=== PATIENT | female | born 1970 | race African-American/Black ===

== ENCOUNTER 2022-10-18 07:13 | Inpatient (IN) | payer OTHER ==
[2022-10-18] VITALS (7 sets, daily range): BP systolic 108–138; BP diastolic 75–92
[~2022-10-18] VITALS: Ht 160 cm; Wt 54.4 kg
[2022-10-18] MEDS ORDERED: IPRATROPIUM BROMIDE (0.02%) 0.5MG/2.5ML NEB HHN STA (07:18)
[2022-10-18] MEDS ORDERED: METHYLPREDNISOLONE SOD SUCC 125 MG/2 ML VIAL IV STA (07:18)
[2022-10-18] MEDS ORDERED: LORAZEPAM 2MG/ML CPJ IV ONE (07:30)
[2022-10-18] MEDS ORDERED: SODIUM CHLORIDE 0.9% 1,000 ML IV ONE (07:30)
[2022-10-18] MEDS ORDERED: MAGNESIUM 2 G PREMIX 50 ML IV ONE (07:30)
[2022-10-18 07:56] LABS: BG BASE EXCESS -2.4 mmol/L (-2.0-2.0); BG DEOXYHEMOGLOBIN 0.5 % (0.0-5.0); BG FRACTION INSPIRED OXYGEN 100; BG HCO3 ACT 25.9 mmol/L (22.0-26.0); BG METHEMOGLOBIN 0.4 % (0.0-1.5); BG OXYGEN SATURATION 99.5 % (92.0-98.5); BG OXYHEMOGLOBIN 98.1 % (94.0-97.0); BG PCO2 58.4 mmHg (35.0-45.0); BG PH 7.264 (7.350-7.450); BG PO2 203.8 mmHg (75.0-100.0); BG SAMPLE SITE LEFT RADIAL; BG TOTAL HEMOGLOBIN 16.2 g/dL (12.0-18.0); BG TOTAL RESPIRATORY RATE 30 b/min; BG VENT MODE MASK - BIPAP
[2022-10-18 08:06] LABS: BASOPHILS % 0.2 % (0.0-2.0); EOSINOPHILS % 1.2 % (0.0-5.0); HEMATOCRIT. 46.9 % (36.0-48.0); HEMOGLOBIN. 15.3 g/dL (12.0-16.0); LYMPHOCYTES % 12.9 % (20.0-50.0); MEAN CORPUSCULAR HEMOGLOBIN 31.1 pg (28.0-32.0); MEAN CORPUSCULAR VOLUME 95.3 fL (81.0-99.0); MEAN PLATELET VOLUME 7.9 fl (7.4-10.4); NEUTROPHILS % 77.7 % (40.0-76.0); PLATELET 280 x1000/uL (130-400); RED BLOOD CELL COUNT 4.92 mill/uL (4.2-5.4)
[2022-10-18 08:12] LABS: CHLORIDE 106 mEq/L (98-107)
[2022-10-18] MEDS ORDERED: LIDOCAINE HCL/PF 1% 10 MG/ML 5ML VIAL INFIL ONE (08:15)
[2022-10-18] MEDS: ALBUTEROL (0.083%) 2.5MG/3ML NEB HHN SCH ×2 (08:18→10:00)
[2022-10-18] MEDS ORDERED: MORPHINE SULFATE 4 MG/ML CPJ (NOT FOR IM USE) IV ONE (09:30)
[2022-10-18] MEDS ORDERED: NALOXONE HCL 0.4MG/ML VIAL IV PRN (11:15)
[2022-10-18] MEDS: HYDROCODONE/ACETAMINOPHEN 5/325MG TABLET PO PRN ×2 (11:45→17:21)
[2022-10-18] MEDS: KETOROLAC 15MG/ML VIAL IV PRN ×2 (12:54→21:22)
[2022-10-18] MEDS: METHYLPREDNISOLONE SOD SUCC 40 MG/ML VIAL IV SCH ×2 (14:22→21:24)
[2022-10-18] MEDS ORDERED: INFLUENZA VACCINE 05/PF 0.5 ML SYRINGE IM ONE (14:45)
[2022-10-18] MEDS ORDERED: IPRATROPIUM/ALBUTEROL 0.5-3(2.5)MG/3ML NEB HHN PRN (14:45)
[2022-10-18] MEDS ORDERED: HYDR-4009 PO (19:34)
[2022-10-18] MEDS ORDERED: RIVA20TA PO (19:44)
[2022-10-18] MEDS ORDERED: P20 PO (19:44)
[2022-10-18] MEDS ORDERED: DEXTL MT (19:44)
[2022-10-18] MEDS ORDERED: MORP60TA45 PO (19:44)
[2022-10-18] MEDS ORDERED: ALBU2.5V13 NEB (19:44)
[2022-10-18] MEDS ORDERED: FLUT1DIS3 INH (19:44)
[2022-10-18] MEDS ORDERED: BUDE0.5A3 NEB (19:44)
[2022-10-18] MEDS ORDERED: UMEC1DIS INH (19:44)
[2022-10-18] MEDS: IPRATROPIUM/ALBUTEROL 0.5-3(2.5)MG/3ML NEB HHN SCH (21:16)
[2022-10-19] VITALS (12 sets, daily range): BP systolic 111–145; BP diastolic 67–87
[2022-10-19] MEDS: IPRATROPIUM/ALBUTEROL 0.5-3(2.5)MG/3ML NEB HHN SCH ×4 (00:51→21:04)
[2022-10-19] MEDS: HYDROCODONE/ACETAMINOPHEN 5/325MG TABLET PO PRN ×4 (01:00→20:50)
[2022-10-19] MEDS: KETOROLAC 15MG/ML VIAL IV PRN ×3 (03:17→16:37)
[2022-10-19] MEDS: METHYLPREDNISOLONE SOD SUCC 40 MG/ML VIAL IV SCH ×3 (04:36→20:49)
[2022-10-19 10:37] LABS: BG BASE EXCESS 1.1 mmol/L (-2.0-2.0); BG CARBOXYHEMOGLOBIN 0.3 % (0.5-1.5); BG DEOXYHEMOGLOBIN 5.1 % (0.0-5.0); BG FRACTION INSPIRED OXYGEN 32; BG HCO3 ACT 25.3 mmol/L (22.0-26.0); BG METHEMOGLOBIN 0.3 % (0.0-1.5); BG OXYGEN SATURATION 94.9 % (92.0-98.5); BG OXYHEMOGLOBIN 94.3 % (94.0-97.0); BG PCO2 38.6 mmHg (35.0-45.0); BG PH 7.434 (7.350-7.450); BG PO2 71.8 mmHg (75.0-100.0); BG SAMPLE SITE RIGHT RADIAL; BG TOTAL HEMOGLOBIN 13.8 g/dL (12.0-18.0); BG VENT MODE NASAL CANNULA
[2022-10-19] MEDS: GUAIFENESIN-DM 200MG-20MG/10ML UDC PO PRN ×2 (14:07→18:50)
[2022-10-20] VITALS (12 sets, daily range): BP systolic 101–128; BP diastolic 58–89
[2022-10-20] MEDS: GUAIFENESIN-DM 200MG-20MG/10ML UDC PO PRN ×2 (01:05→09:18)
[2022-10-20] MEDS: KETOROLAC 15MG/ML VIAL IV PRN ×2 (01:05→09:18)
[2022-10-20] MEDS: IPRATROPIUM/ALBUTEROL 0.5-3(2.5)MG/3ML NEB HHN SCH ×3 (02:00→14:51)
[2022-10-20] MEDS: ONDANSETRON HCL 4MG/2ML INJ IV PRN (04:16)
[2022-10-20] MEDS: METHYLPREDNISOLONE SOD SUCC 40 MG/ML VIAL IV SCH ×3 (04:16→21:13)
[2022-10-20] MEDS: HYDROCODONE/ACETAMINOPHEN 5/325MG TABLET PO PRN ×4 (04:17→18:12)
[2022-10-20] MEDS: ENOXAPARIN 40MG/0.4ML SYR SUBCUT SCH (21:00)
[2022-10-21 00:47] VITALS: BP 119/71
[2022-10-21] MEDS: IPRATROPIUM/ALBUTEROL 0.5-3(2.5)MG/3ML NEB HHN SCH ×4 (01:07→20:25)
[2022-10-21] MEDS: KETOROLAC 15MG/ML VIAL IV PRN ×2 (02:31→11:56)
[2022-10-21] MEDS: GUAIFENESIN-DM 200MG-20MG/10ML UDC PO PRN ×2 (02:31→11:55)
[2022-10-21] MEDS: METHYLPREDNISOLONE SOD SUCC 40 MG/ML VIAL IV SCH ×3 (05:04→21:41)
[2022-10-21 06:00] VITALS: BP 130/78
[2022-10-21 08:00] VITALS: BP 130/71
[2022-10-21 12:15] VITALS: BP 123/80
[2022-10-21] MEDS ORDERED: DOCUSATE SODIUM 250MG CAPSULE PO PRN (13:45)
[2022-10-21 16:15] VITALS: BP 123/80
[2022-10-21 20:00] VITALS: BP 136/97
[2022-10-21] MEDS ORDERED: MORPHINE SULFATE 2 MG/ML CPJ (NOT FOR IM USE) IV NR (21:00)
[2022-10-21] MEDS: ENOXAPARIN 40MG/0.4ML SYR SUBCUT SCH (21:41)
[2022-10-22] VITALS (7 sets, daily range): BP systolic 107–137; BP diastolic 63–80
[2022-10-22] MEDS: IPRATROPIUM/ALBUTEROL 0.5-3(2.5)MG/3ML NEB HHN SCH ×4 (02:00→21:37)
[2022-10-22] MEDS: METHYLPREDNISOLONE SOD SUCC 40 MG/ML VIAL IV SCH ×3 (05:26→21:21)
[2022-10-22] MEDS ORDERED: MORPHINE SULFATE 30MG TABLET SR PO SCH ×2 (09:00→21:00)
[2022-10-22 10:21] LABS: HEMATOCRIT. 45.2 % (36.0-48.0); HEMOGLOBIN. 15.2 g/dL (12.0-16.0); MEAN CORPUSCULAR HEMOGLOBIN 31.7 pg (28.0-32.0); MEAN CORPUSCULAR VOLUME 94.2 fL (81.0-99.0); MEAN PLATELET VOLUME 8.6 fl (7.4-10.4); PLATELET 326 x1000/uL (130-400)
[2022-10-22 10:36] LABS: CHLORIDE 103 mEq/L (98-107)
[2022-10-22] MEDS ORDERED: MORPHINE SULFATE 15MG TABLET SR PO SCH (11:15)
[2022-10-22] MEDS ORDERED: POTASSIUM CHLORIDE 20MEQ TABLET SR PO NR (14:15)
[2022-10-22] MEDS: ENOXAPARIN 40MG/0.4ML SYR SUBCUT SCH (21:22)
[2022-10-22] MEDS ORDERED: MORPHINE SULFATE 30MG TABLET SR PO NR (22:23)
[2022-10-22] MEDS ORDERED: PHENYLEPH/PRAMOXIN/GLYCR/PET RECTAL CREAM 26GM PR PRN (22:30)
[2022-10-23] VITALS: BP 112/66
[2022-10-23] MEDS: GUAIFENESIN-DM 200MG-20MG/10ML UDC PO PRN (01:36)
[2022-10-23] MEDS: IPRATROPIUM/ALBUTEROL 0.5-3(2.5)MG/3ML NEB HHN SCH ×4 (02:56→21:11)
[2022-10-23 03:53] VITALS: BP 101/65
[2022-10-23] MEDS: METHYLPREDNISOLONE SOD SUCC 40 MG/ML VIAL IV SCH ×3 (04:37→20:41)
[2022-10-23 06:41] LABS: PLATELET ESTIMATE NORMAL
[2022-10-23 08:00] VITALS: BP 132/89
[2022-10-23] MEDS: MORPHINE SULFATE 30MG TABLET SR PO SCH ×2 (08:23→20:42)
[2022-10-23 12:00] VITALS: BP 126/87
[2022-10-23 16:00] VITALS: BP 122/80
[2022-10-23] MEDS ORDERED: MORPHINE SULFATE 2 MG/ML CPJ (NOT FOR IM USE) IV NR (16:57)
[2022-10-23 19:53] VITALS: BP 119/79
[2022-10-23] MEDS: ENOXAPARIN 40MG/0.4ML SYR SUBCUT SCH (20:42)
[2022-10-24] VITALS: BP 110/75
[2022-10-24 04:00] VITALS: BP 115/75
[2022-10-24] MEDS: METHYLPREDNISOLONE SOD SUCC 40 MG/ML VIAL IV SCH ×3 (04:09→20:26)
[2022-10-24 08:00] VITALS: BP 128/80
[2022-10-24] MEDS: MORPHINE SULFATE 30MG TABLET SR PO SCH ×2 (08:20→21:05)
[2022-10-24] MEDS ORDERED: NALOXONE HCL 0.4MG/ML VIAL IV PRN (09:30)
[2022-10-24] MEDS ORDERED: IPRATROPIUM/ALBUTEROL 0.5-3(2.5)MG/3ML NEB HHN PRN (11:15)
[2022-10-24 12:00] VITALS: BP 144/77
[2022-10-24] MEDS: IPRATROPIUM/ALBUTEROL 0.5-3(2.5)MG/3ML NEB HHN SCH ×2 (13:51→21:22)
[2022-10-24 16:00] VITALS: BP 154/90
[2022-10-24 20:00] VITALS: BP 127/79
[2022-10-24] MEDS: ENOXAPARIN 40MG/0.4ML SYR SUBCUT SCH (21:04)
[2022-10-25] VITALS (11 sets, daily range): BP systolic 95–147; BP diastolic 62–97
[2022-10-25] MEDS: IPRATROPIUM/ALBUTEROL 0.5-3(2.5)MG/3ML NEB HHN SCH ×6 (00:52→19:55)
[2022-10-25] MEDS: METHYLPREDNISOLONE SOD SUCC 40 MG/ML VIAL IV SCH ×3 (04:55→21:07)
[2022-10-25] MEDS: MORPHINE SULFATE 30MG TABLET SR PO SCH ×2 (08:41→21:08)
[2022-10-25] MEDS ORDERED: LORAZEPAM 1MG TABLET PO NR (20:30)
[2022-10-25] MEDS: ENOXAPARIN 40MG/0.4ML SYR SUBCUT SCH (21:08)
[2022-10-26] VITALS (27 sets, daily range): BP systolic 97–152; BP diastolic 48–92
[2022-10-26] MEDS: IPRATROPIUM/ALBUTEROL 0.5-3(2.5)MG/3ML NEB HHN SCH ×6 (01:00→20:50)
[2022-10-26] MEDS: METHYLPREDNISOLONE SOD SUCC 40 MG/ML VIAL IV SCH ×3 (05:20→21:25)
[2022-10-26 06:20] LABS: CHLORIDE 98 mEq/L (98-107)
[2022-10-26 06:33] LABS: HEMATOCRIT. 40.9 % (36.0-48.0); HEMOGLOBIN. 13.7 g/dL (12.0-16.0); MEAN CORPUSCULAR HEMOGLOBIN 31.5 pg (28.0-32.0); MEAN CORPUSCULAR VOLUME 94.1 fL (81.0-99.0); MEAN PLATELET VOLUME 7.8 fl (7.4-10.4); PLATELET 359 x1000/uL (130-400); RED BLOOD CELL COUNT 4.34 mill/uL (4.2-5.4); RED CELL DISTRIBUTION WIDTH 14.2 % (11.6-14.6)
[2022-10-26 06:39] LABS: PROTHROMBIN TIME 10.3 sec (9.6-11.0)
[2022-10-26] MEDS: MORPHINE SULFATE 30MG TABLET SR PO SCH ×2 (08:23→21:51)
[2022-10-26] MEDS ORDERED: TALC 3 GM VIAL IX NR (11:30)
[2022-10-26] MEDS ORDERED: LIDOCAINE HCL/EPINEPHRINE 1%-EPI 1:100,000 30 ML VIAL INFIL ONE (11:43)
[2022-10-26] MEDS ORDERED: SKIN ADHESIVE 0.7 GM EA TOP ONE (11:44)
[2022-10-26] MEDS ORDERED: POLYMYXIN B SULFATE 500000 UNITS/VIAL ONE (11:44)
[2022-10-26] MEDS ORDERED: BUPIVACAINE HCL/PF 0.5% (5MG/ML) 10ML ONE ×2 (11:48→18:01)
[2022-10-26] MEDS ORDERED: ACETAMINOPHEN 500MG TABLET ONE (13:35)
[2022-10-26] MEDS ORDERED: ALBUMIN HUMAN 12.5G/250ML (5%) IV NR (15:00)
[2022-10-26] MEDS ORDERED: PHENYLEPHRINE 50 MG in DEXTROSE 5% WATER 250 ML IV PRN (15:00)
[2022-10-26] MEDS ORDERED: ALBUTEROL 6.7GM HFA INHALER ONE (15:48)
[2022-10-26] MEDS ORDERED: PROPOFOL 200MG/20ML VIAL IV ONE ×2 (15:53→16:52)
[2022-10-26] MEDS ORDERED: MIDAZOLAM HCL 2 MG/2 ML VIAL ONE (15:54)
[2022-10-26] MEDS ORDERED: METOCLOPRAMIDE HCL 10MG/2ML VIAL ONE (15:54)
[2022-10-26] MEDS ORDERED: ONDANSETRON HCL 4MG/2ML INJ ONE (15:54)
[2022-10-26] MEDS ORDERED: SUCCINYLCHOLINE CHLORIDE 200MG/10ML IV ONE (15:54)
[2022-10-26] MEDS ORDERED: ROCURONIUM BROMIDE 10MG/ML VIAL 5ML IV ONE (15:54)
[2022-10-26] MEDS ORDERED: PHENYLEPHRINE HCL 10 MG/ML 1ML (IV VIAL) IV ONE (16:00)
[2022-10-26] MEDS ORDERED: FENTANYL CITRATE/PF 50MCG/ML 2ML VIAL ONE (16:51)
[2022-10-26] MEDS ORDERED: GLYCOPYRROLATE 0.2 MG/ML 2ML VIAL ONE (17:25)
[2022-10-26] MEDS ORDERED: NEOSTIGMINE METHYLSULFATE 1MG/ML 10 ML VIAL ONE (17:25)
[2022-10-26] MEDS ORDERED: LABETALOL HCL 5MG/ML VIAL 20ML IV ONE (18:23)
[2022-10-26] MEDS ORDERED: HYDROCODONE/ACETAMINOPHEN 5/325MG TABLET PO PRN (19:00)
[2022-10-26 19:15] LABS: BG BASE EXCESS 1.8 mmol/L (-2.0-2.0); BG CARBOXYHEMOGLOBIN 0.3 % (0.5-1.5); BG DEOXYHEMOGLOBIN 1.4 % (0.0-5.0); BG FRACTION INSPIRED OXYGEN 100; BG HCO3 ACT 28.1 mmol/L (22.0-26.0); BG METHEMOGLOBIN 0.2 % (0.0-1.5); BG OXYGEN SATURATION 98.6 % (92.0-98.5); BG OXYHEMOGLOBIN 98.1 % (94.0-97.0); BG PCO2 51.4 mmHg (35.0-45.0); BG PH 7.356 (7.350-7.450); BG PO2 148.3 mmHg (75.0-100.0); BG SAMPLE SITE ALINE; BG TOTAL HEMOGLOBIN 12.4 g/dL (12.0-18.0); BG VENT MODE MASK - NRB
[2022-10-26 19:30] LABS: HEMATOCRIT. 36.6 % (36.0-48.0); HEMOGLOBIN. 11.9 g/dL (12.0-16.0); MEAN CORPUSCULAR HEMOGLOBIN 30.4 pg (28.0-32.0); MEAN CORPUSCULAR VOLUME 93.5 fL (81.0-99.0); MEAN PLATELET VOLUME 6.7 fl (7.4-10.4); PLATELET 292 x1000/uL (130-400); RED BLOOD CELL COUNT 3.91 mill/uL (4.2-5.4); RED CELL DISTRIBUTION WIDTH 14.1 % (11.6-14.6)
[2022-10-26 19:42] LABS: CHLORIDE 99 mEq/L (98-107)
[2022-10-26] MEDS: ENOXAPARIN 40MG/0.4ML SYR SUBCUT SCH (21:26)
[2022-10-26] MEDS: CEFAZOLIN 1000MG PREMIX 50 ML IV SCH (21:29)
[2022-10-26] MEDS ORDERED: CEFAZOLIN SODIUM 1000MG/VIAL IV SCH (22:00)
[2022-10-27] VITALS (86 sets, daily range): BP systolic 95–186; BP diastolic 49–111
[2022-10-27] MEDS: IPRATROPIUM/ALBUTEROL 0.5-3(2.5)MG/3ML NEB HHN SCH ×5 (00:52→20:37)
[2022-10-27 00:56] LABS: PLATELET ESTIMATE NORMAL
[2022-10-27] MEDS: METHYLPREDNISOLONE SOD SUCC 40 MG/ML VIAL IV SCH (04:30)
[2022-10-27] MEDS: CEFAZOLIN 1000MG PREMIX 50 ML IV SCH ×3 (05:29→21:58)
[2022-10-27 05:34] LABS: PLATELET ESTIMATE NORMAL
[2022-10-27] MEDS: DOCUSATE SODIUM 100MG CAPSULE PO SCH ×2 (09:52→17:51)
[2022-10-27] MEDS: MORPHINE SULFATE 30MG TABLET SR PO SCH ×2 (09:53→21:10)
[2022-10-27 10:34] LABS: HEMOGLOBIN. 12.3 g/dL (12.0-16.0); MEAN CORPUSCULAR HEMOGLOBIN 30.7 pg (28.0-32.0); MEAN CORPUSCULAR VOLUME 94.7 fL (81.0-99.0); MEAN PLATELET VOLUME 7.8 fl (7.4-10.4); PLATELET 304 x1000/uL (130-400); RED BLOOD CELL COUNT 4.01 mill/uL (4.2-5.4); RED CELL DISTRIBUTION WIDTH 14.2 % (11.6-14.6)
[2022-10-27 10:40] LABS: CHLORIDE 100 mEq/L (98-107)
[2022-10-27] MEDS: PREDNISONE 20MG TABLET PO SCH (11:03)
[2022-10-27 12:02] LABS: PLATELET ESTIMATE NORMAL
[2022-10-27] MEDS: ENOXAPARIN 40MG/0.4ML SYR SUBCUT SCH (21:10)
[2022-10-28] VITALS (52 sets, daily range): BP systolic 106–145; BP diastolic 65–104
[2022-10-28] MEDS: IPRATROPIUM/ALBUTEROL 0.5-3(2.5)MG/3ML NEB HHN SCH ×6 (00:17→20:52)
[2022-10-28 06:13] LABS: HEMATOCRIT. 39.8 % (36.0-48.0); HEMOGLOBIN. 13.2 g/dL (12.0-16.0); MEAN CORPUSCULAR HEMOGLOBIN 31.4 pg (28.0-32.0); MEAN CORPUSCULAR VOLUME 94.2 fL (81.0-99.0); MEAN PLATELET VOLUME 7.6 fl (7.4-10.4); PLATELET 285 x1000/uL (130-400); RED BLOOD CELL COUNT 4.22 mill/uL (4.2-5.4); RED CELL DISTRIBUTION WIDTH 14.1 % (11.6-14.6)
[2022-10-28 06:32] LABS: CHLORIDE 96 mEq/L (98-107)
[2022-10-28] MEDS: PREDNISONE 20MG TABLET PO SCH (08:57)
[2022-10-28] MEDS: ONDANSETRON HCL 4MG/2ML INJ IV PRN (08:57)
[2022-10-28] MEDS: GUAIFENESIN 600MG ER TABLET PO SCH (08:57)
[2022-10-28] MEDS: DOCUSATE SODIUM 100MG CAPSULE PO SCH ×2 (08:57→16:19)
[2022-10-28] MEDS: MORPHINE SULFATE 2 MG/ML CPJ (NOT FOR IM USE) IV PRN ×3 (08:58→22:02)
[2022-10-28] MEDS ORDERED: CEFTRIAXONE 1GM PREMIX 50 ML IV SCH (10:45)
[2022-10-28 10:50] LABS: PLATELET ESTIMATE NORMAL
[2022-10-28] MEDS: CEFTRIAXONE 1,000 MG in DEXTROSE 5% WATER 50 ML IV SCH (12:18)
[2022-10-28] MEDS: ENOXAPARIN 40MG/0.4ML SYR SUBCUT SCH (22:03)
[2022-10-29] VITALS (22 sets, daily range): BP systolic 98–136; BP diastolic 42–98
[2022-10-29] MEDS: IPRATROPIUM/ALBUTEROL 0.5-3(2.5)MG/3ML NEB HHN SCH ×4 (00:15→12:42)
[2022-10-29] MEDS: MORPHINE SULFATE 2 MG/ML CPJ (NOT FOR IM USE) IV PRN ×5 (05:05→21:31)
[2022-10-29 06:34] LABS: HEMATOCRIT. 38.4 % (36.0-48.0); MEAN CORPUSCULAR HEMOGLOBIN 31.7 pg (28.0-32.0); MEAN CORPUSCULAR VOLUME 93.5 fL (81.0-99.0); MEAN PLATELET VOLUME 7.4 fl (7.4-10.4); PLATELET 252 x1000/uL (130-400); RED CELL DISTRIBUTION WIDTH 14.2 % (11.6-14.6)
[2022-10-29 06:37] LABS: CHLORIDE 95 mEq/L (98-107)
[2022-10-29] MEDS: GUAIFENESIN 600MG ER TABLET PO SCH ×2 (08:31→21:34)
[2022-10-29] MEDS: DOCUSATE SODIUM 100MG CAPSULE PO SCH ×2 (08:32→17:22)
[2022-10-29] MEDS ORDERED: DOCUSATE SODIUM 250MG CAPSULE PO PRN (09:00)
[2022-10-29] MEDS ORDERED: LACTULOSE 20G/30ML UDC PO NR (09:00)
[2022-10-29] MEDS: CEFTRIAXONE 1,000 MG in DEXTROSE 5% WATER 50 ML IV SCH (12:24)
[2022-10-29 13:21] LABS: PLATELET ESTIMATE NORMAL
[2022-10-29] MEDS: IPRATROPIUM BROMIDE (0.02%) 0.5MG/2.5ML NEB HHN SCH (20:35)
[2022-10-29] MEDS: ENOXAPARIN 40MG/0.4ML SYR SUBCUT SCH (21:36)
[2022-10-30] VITALS (15 sets, daily range): BP systolic 103–125; BP diastolic 49–89
[2022-10-30] MEDS: IPRATROPIUM BROMIDE (0.02%) 0.5MG/2.5ML NEB HHN SCH ×6 (00:28→20:09)
[2022-10-30] MEDS: ACETYLCYSTEINE 200MG/ML 20% VIAL 4ML INH SCH ×3 (00:28→12:34)
[2022-10-30] MEDS: MORPHINE SULFATE 2 MG/ML CPJ (NOT FOR IM USE) IV PRN ×6 (02:25→21:43)
[2022-10-30] MEDS: GUAIFENESIN 600MG ER TABLET PO SCH ×2 (08:45→21:40)
[2022-10-30] MEDS: DOCUSATE SODIUM 100MG CAPSULE PO SCH ×2 (08:46→16:56)
[2022-10-30] MEDS: CEFTRIAXONE 1,000 MG in DEXTROSE 5% WATER 50 ML IV SCH (11:33)
[2022-10-30] MEDS: ENOXAPARIN 40MG/0.4ML SYR SUBCUT SCH (21:41)
[2022-10-31] VITALS (9 sets, daily range): BP systolic 91–142; BP diastolic 58–91
[2022-10-31] MEDS: IPRATROPIUM BROMIDE (0.02%) 0.5MG/2.5ML NEB HHN SCH ×6 (00:18→20:44)
[2022-10-31] MEDS: MORPHINE SULFATE 2 MG/ML CPJ (NOT FOR IM USE) IV PRN ×5 (01:57→18:37)
[2022-10-31] MEDS: ACETYLCYSTEINE 200MG/ML 20% VIAL 4ML INH SCH ×2 (08:56→16:26)
[2022-10-31] MEDS: GUAIFENESIN 600MG ER TABLET PO SCH ×2 (09:30→21:39)
[2022-10-31] MEDS: DOCUSATE SODIUM 100MG CAPSULE PO SCH ×2 (09:30→18:37)
[2022-10-31] MEDS: CEFTRIAXONE 1,000 MG in DEXTROSE 5% WATER 50 ML IV SCH (12:03)
[2022-10-31] MEDS: LACTULOSE 20G/30ML UDC PO PRN (18:40)
[2022-10-31] MEDS: HYDROCODONE/ACETAMINOPHEN 10/325MG TABLET PO PRN (21:38)
[2022-10-31] MEDS: ENOXAPARIN 40MG/0.4ML SYR SUBCUT SCH (21:39)
[2022-11-01] VITALS (10 sets, daily range): BP systolic 95–112; BP diastolic 62–86
[2022-11-01] MEDS: ACETYLCYSTEINE 200MG/ML 20% VIAL 4ML INH SCH ×4 (00:30→21:46)
[2022-11-01] MEDS: IPRATROPIUM BROMIDE (0.02%) 0.5MG/2.5ML NEB HHN SCH ×6 (00:54→21:35)
[2022-11-01] MEDS: HYDROCODONE/ACETAMINOPHEN 10/325MG TABLET PO PRN ×2 (05:35→17:00)
[2022-11-01 07:43] LABS: BG BASE EXCESS 6.1 mmol/L (-2.0-2.0); BG DEOXYHEMOGLOBIN 10.7 % (0.0-5.0); BG METHEMOGLOBIN 0.3 % (0.0-1.5); BG OXYGEN SATURATION 89.2 % (92.0-98.5); BG PCO2 40.4 mmHg (35.0-45.0); BG PH 7.488 (7.350-7.450); BG SAMPLE SITE RIGHT RADIAL; BG TOTAL HEMOGLOBIN 13.7 g/dL (12.0-18.0); BG VENT MODE ROOM AIR
[2022-11-01] MEDS: DOCUSATE SODIUM 100MG CAPSULE PO SCH ×2 (09:16→16:59)
[2022-11-01] MEDS: GUAIFENESIN 600MG ER TABLET PO SCH ×2 (09:16→21:57)
[2022-11-01] MEDS ORDERED: SORBITOL 70% SOLN 30ML PO NR (11:00)
[2022-11-01] MEDS ORDERED: MORPHINE SULFATE 30MG TABLET SR PO NR (12:00)
[2022-11-01] MEDS: CEFTRIAXONE 1,000 MG in DEXTROSE 5% WATER 50 ML IV SCH (12:20)
[2022-11-01] MEDS ORDERED: MORPHINE SULFATE 30MG TABLET SR PO SCH (21:00)
[2022-11-01] MEDS: MORPHINE SULFATE 30MG TABLET SR PO SCH (21:57)
[2022-11-01] MEDS: ENOXAPARIN 40MG/0.4ML SYR SUBCUT SCH (22:01)
[2022-11-02] VITALS: BP 109/80
[2022-11-02] MEDS: IPRATROPIUM BROMIDE (0.02%) 0.5MG/2.5ML NEB HHN SCH ×6 (00:35→21:47)
[2022-11-02] MEDS: ACETYLCYSTEINE 200MG/ML 20% VIAL 4ML INH SCH (01:16)
[2022-11-02 04:00] VITALS: BP 109/78
[2022-11-02 08:00] VITALS: BP 106/64
[2022-11-02] MEDS: HYDROCODONE/ACETAMINOPHEN 10/325MG TABLET PO PRN (09:18)
[2022-11-02] MEDS: GUAIFENESIN 600MG ER TABLET PO SCH ×2 (09:19→21:39)
[2022-11-02] MEDS: DOCUSATE SODIUM 100MG CAPSULE PO SCH ×2 (09:19→18:22)
[2022-11-02] MEDS: MORPHINE SULFATE 30MG TABLET SR PO SCH ×2 (09:26→21:39)
[2022-11-02 12:00] VITALS: BP 107/84
[2022-11-02 16:00] VITALS: BP 113/68
[2022-11-02 20:00] VITALS: BP 100/73
[2022-11-02] MEDS: ENOXAPARIN 40MG/0.4ML SYR SUBCUT SCH (21:40)
[2022-11-02] MEDS: LACTULOSE 20G/30ML UDC PO PRN (21:53)
[2022-11-03] VITALS: BP 103/72
[2022-11-03] MEDS: IPRATROPIUM BROMIDE (0.02%) 0.5MG/2.5ML NEB HHN SCH ×3 (01:00→08:30)
[2022-11-03 04:00] VITALS: BP 122/84
[2022-11-03] MEDS: LACTULOSE 20G/30ML UDC PO PRN (06:56)
[2022-11-03 08:00] VITALS: BP 130/85
[2022-11-03] MEDS: ONDANSETRON HCL 4MG/2ML INJ IV PRN ×2 (08:07→14:47)
[2022-11-03] MEDS: DOCUSATE SODIUM 100MG CAPSULE PO SCH ×2 (09:00→17:33)
[2022-11-03] MEDS: GUAIFENESIN 600MG ER TABLET PO SCH (09:00)
[2022-11-03] MEDS: MORPHINE SULFATE 30MG TABLET SR PO SCH ×2 (09:00→21:01)
[2022-11-03 12:00] VITALS: BP 120/90
[2022-11-03] MEDS ORDERED: IPRATROPIUM BROMIDE (0.02%) 0.5MG/2.5ML NEB ONE (14:10)
[2022-11-03 16:00] VITALS: BP 117/67
[2022-11-03] MEDS ORDERED: NA PHOS,M-B/NA PHOS,DI-BA ENEMA 118ML PR NR (16:30)
[2022-11-03] MEDS: DEXT 5%/0.45% NACL 1000ML 1,000 ML IV SCH (17:33)
[2022-11-03] MEDS: METOCLOPRAMIDE HCL 10MG/2ML VIAL IV SCH ×2 (17:34→21:02)
[2022-11-03 20:55] VITALS: BP 121/81
[2022-11-03] MEDS: ENOXAPARIN 40MG/0.4ML SYR SUBCUT SCH (21:03)
[2022-11-04] VITALS (7 sets, daily range): BP systolic 109–126; BP diastolic 73–96
[2022-11-04] MEDS: HYDROCODONE/ACETAMINOPHEN 10/325MG TABLET PO PRN ×2 (02:38→20:10)
[2022-11-04] MEDS: GUAIFENESIN 600MG ER TABLET PO SCH ×2 (09:00→20:45)
[2022-11-04] MEDS: DOCUSATE SODIUM 100MG CAPSULE PO SCH ×2 (09:00→18:18)
[2022-11-04] MEDS: MORPHINE SULFATE 30MG TABLET SR PO SCH (09:01)
[2022-11-04] MEDS: ONDANSETRON HCL 4MG/2ML INJ IV PRN (09:20)
[2022-11-04] MEDS: METOCLOPRAMIDE HCL 10MG/2ML VIAL IV SCH ×3 (12:57→20:45)
[2022-11-04] MEDS ORDERED: LIDOCAINE 5% PATCH TOP SCH (15:30)
[2022-11-04] MEDS ORDERED: POLYETHYLENE GLYCOL 3350 (17GM) 1 DOSE PACK PO SCH (15:30)
[2022-11-04] MEDS ORDERED: IPRATROPIUM/ALBUTEROL 0.5-3(2.5)MG/3ML NEB HHN PRN (17:00)
[2022-11-04] MEDS ORDERED: IPRATROPIUM/ALBUTEROL 0.5-3(2.5)MG/3ML NEB HHN SCH (18:00)
[2022-11-04] MEDS: DEXT 5%/0.45% NACL 1000ML 1,000 ML IV SCH (18:19)
[2022-11-04] MEDS: ENOXAPARIN 40MG/0.4ML SYR SUBCUT SCH (20:45)
== END 2022-11-04 21:04 | disposition home or self-care (01) | DRG 163 ==
LOC: ER 07:13 → 5EST 10:06 → EDBEDREQTM 10:13 → EDBEDREQSVC 10:13 → EDBEDREQ 10:13 → EDBEDREQSVC 11:07 → 3WST 10-20 13:17 → CVICU 10-26 18:57 → 5EST 10-29 10:21 → 6EST 11-01 14:30
PROVIDERS: ADMIT Internal Medicine; ATTEND Internal Medicine
PROC: 0W9900Z Drainage of Right Pleural Cavity with Drainage Device, Open Approach (ICD-10-PCS; principal; 2022-10-18)
PROC: 5A09357 Assistance with Respiratory Ventilation, Less than 24 Consecutive Hours, Continuous Positive Airway Pressure (ICD-10-PCS; 2022-10-18)
PROC: 5A09357 Assistance with Respiratory Ventilation, Less than 24 Consecutive Hours, Continuous Positive Airway Pressure (ICD-10-PCS; 2022-10-20)
PROC: 0BBC4ZZ Excision of Right Upper Lung Lobe, Percutaneous Endoscopic Approach (ICD-10-PCS; 2022-10-26)
PROC: 3E0L3GC Introduction of Other Therapeutic Substance into Pleural Cavity, Percutaneous Approach (ICD-10-PCS; 2022-10-26)
PROC: 0BBF4ZZ Excision of Right Lower Lung Lobe, Percutaneous Endoscopic Approach (ICD-10-PCS; 2022-10-26)
PROC: 5A1935Z Respiratory Ventilation, Less than 24 Consecutive Hours (ICD-10-PCS; 2022-10-29)
PROC: 0BH17EZ Insertion of Endotracheal Airway into Trachea, Via Natural or Artificial Opening (ICD-10-PCS; 2022-10-29)
DX: J93.0 Spontaneous tension pneumothorax (principal); J96.01 Acute respiratory failure with hypoxia; C78.02 Secondary malignant neoplasm of left lung; K56.7 Ileus, unspecified; T79.7XXA Traumatic subcutaneous emphysema, initial encounter; C50.912 Malignant neoplasm of unspecified site of left female breast; D72.829 Elevated white blood cell count, unspecified; F17.210 Nicotine dependence, cigarettes, uncomplicated; Z20.822 Contact with and (suspected) exposure to COVID-19; J45.909 Unspecified asthma, uncomplicated; R93.89 Abnormal findings on diagnostic imaging of other specified body structures; Z85.3 Personal history of malignant neoplasm of breast; Z88.6 Allergy status to analgesic agent; Z63.5 Disruption of family by separation and divorce; Z92.3 Personal history of irradiation; Z88.5 Allergy status to narcotic agent
CPT/HCPCS: 36415; 36600; 71045; 71250; 74018; 80048; 80053; 82375; 82805; 83735; 84145; 84484; 85025; 85379; 86850; 86900; 87426; 87804; 88309; 93005; 93970; 94640; 94660; 97116; 97162; 97530; 99291; C1751; C1893; C9803; J0330; J0690; J0696; J1650; J1885; J2060; J2250; J2270; J2370; J2405; J2704; J2710; J2765; J2920; J2930; J3010; J3475; J3490; J7030; J7060; J7512; J7608; P9041